=== PATIENT | female | born 1970 | race African-American/Black ===

== ENCOUNTER 2019-04-23 16:32 | Emergency (ER) | payer OTHER ==
[~2019-04-23] VITALS: Ht 172.7 cm; Wt 81.0 kg
[2019-04-23] MEDS ORDERED: KETOROLAC 60MG/2ML VIAL IM ONE (17:45)
[2019-04-23 18:04] VITALS: BP 132/87
== END 2019-04-23 18:05 | disposition home or self-care (01) ==
LOC: ER 16:32
DX: S16.1XXA Strain of muscle, fascia and tendon at neck level, initial encounter (principal); E03.9 Hypothyroidism, unspecified; V49.88XA Car occupant (driver) (passenger) injured in other specified transport accidents, initial encounter; Y93.89 Activity, other specified; Y92.89 Other specified places as the place of occurrence of the external cause; Y99.8 Other external cause status
CPT/HCPCS: 96372; 99283; J1885